=== PATIENT | male | born 1985 | race African-American/Black ===

== ENCOUNTER 2016-06-03 11:12 | Emergency (ER) | payer SELFPAY ==
--- NOTE | 2016-06-03 11:17 | ER Document Report ---
ED Medical Screen (RME) - General Chief Complaint: Penile Discharge Stated Complaint: URINARY PROBLEMS Time seen by provider: 11:15 Mode of Arrival: Ambulatory Information source: Patient Notes: 31-year-old male presents to ED for abnormal discharge and pain with urination started this morning. States he had had unprotected sex. I have greeted and performed a rapid initial assessment of this patient. A comprehensive ED assessment and evaluation of the patient, analysis of test results and completion of medical decision making process will be conducted by an additional ED providers. TRAVEL OUTSIDE OF THE [place] IN LAST 30 DAYS: No - Related Data Allergies/Adverse Reactions: No Known Drug Allergies Allergy (Verified 04/23/15 03:27) Past Medical History Musculoskeltal Medical History: Reports Hx Arthritis, Reports Hx Musculoskeletal Deformity, Reports Hx Musculoskeletal Trauma - Immunizations Immunizations up to date: Yes Hx Diphtheria, Pertussis, Tetanus Vaccination: Yes - 2013
[2016-06-03 11:48] LABS: APPEARANCE,URINE CLEAR; BILIRUBIN,URINE NEGATIVE (NEGATIVE); GLUCOSE, URINE NEGATIVE (NEGATIVE); KETONES,URINE NEGATIVE (NEGATIVE); LEUKOCYTE ESTERASE,URINE NEGATIVE (NEGATIVE); NITRITE,URINE NEGATIVE (NEGATIVE); PROTEIN,URINE 100 mg/dL (NEGATIVE); URINE SPECIFIC GRAVITY 1.023; UROBILINOGEN,URINE NEGATIVE mg/dL (<2.0)
--- NOTE | 2016-06-03 11:59 | ER Document Report ---
ED General - General Chief Complaint: Penile Discharge Stated Complaint: URINARY PROBLEMS Time seen by provider: 11:57 Mode of Arrival: Ambulatory Notes: This is a 31-year-old male that presents today with penile discharge since 0700 this morning. Patient states that the discharge is yellow green colored. He does admit to some discomfort during the stream. Denies trouble starting a stream or pain. Denies any hematuria. Denies nausea vomiting fever or chills. He has been engaging in unprotected sex. Patient has been with this woman for one week.admits to a monogamous relationship. Patient denies that his partner is symptomatic of any STDs. Denies any testicular pain or swelling. TRAVEL OUTSIDE OF THE [place] IN LAST 30 DAYS: No - Related Data Allergies/Adverse Reactions: No Known Drug Allergies Allergy (Verified 06/03/16 11:17) Past Medical History - General Information source: Patient - Social History Smoking Status: Never Smoker Chew tobacco use (# tins/day): No Frequency of alcohol use: None Drug Abuse: Bath salts Family History: CAD, Hyperlipidemia, Hypertension. denies: Arthritis, CVA, DM, Malignancy, Thyroid Disfunction Patient has suicidal ideation: No Patient has homicidal ideation: No Renal/ Medical History: Denies: Hx Peritoneal Dialysis Musculoskeltal Medical History: Reports Hx Arthritis, Reports Hx Musculoskeletal Deformity, Reports Hx Musculoskeletal Trauma - Immunizations Immunizations up to date: Yes Hx Diphtheria, Pertussis, Tetanus Vaccination: Yes - 2013 Review of Systems - Review of Systems Constitutional: denies: Chills, Fever EENT: No symptoms reported Cardiovascular: No symptoms reported Respiratory: No symptoms reported Gastrointestinal: No symptoms reported Genitourinary: See HPI Male Genitourinary: See HPI, Penile discharge. denies: Testicular pain Musculoskeletal: No symptoms reported Skin: No symptoms reported Hematologic/Lymphatic: No symptoms reported Neurological/Psychological: No symptoms reported Physical Exam - Vital signs Vitals: Temp Pulse Resp BP Pulse Ox 98.1 F 61 18 130/75 H 99 06/03/16 11:16 06/03/16 11:16 06/03/16 11:16 06/03/16 11:16 06/03/16 11:16 - General General appearance: Appears well In distress: None - HEENT Head: Normocephalic, Atraumatic Eyes: Normal Conjunctiva: Normal - Respiratory Respiratory status: No respiratory distress Breath sounds: Normal. No: Rales, Rhonchi, Stridor, Wheezing - Cardiovascular Rhythm: Regular Heart sounds: Normal auscultation - Abdominal Inspection: Normal Distension: No distension Tenderness: Nontender - Genitourinary Inspection: Normal - Patient is circumcised. No discharge noted or drainage on examination. No: Blood at meatus Tenderness: Nontender. No: Lesions, Testicle tender, Epididymis tender Cremasteric reflex: Normal Scrotum: Normal - No lesions noted. No: Swelling, Redness, Hot to touch - Back Back: Normal. No: CVA tenderness - Extremities General upper extremity: Normal inspection, Normal ROM General lower extremity: Normal inspection, Nontender, Normal ROM, Normal strength - Neurological Cognition: Normal. No: Confused - Psychological Associated symptoms: Normal affect, Normal mood - Skin Skin Temperature: Warm Skin Moisture: Dry Skin Color: Normal Course - Re-evaluation Re-evalutation: 06/03/16 12:36 Patient was advised to follow-up with primary care physician. Patient was told of laboratory findings. He was given multiple opportunities to ask questions. On genitourinary exam patient did not have any testicular pain no torsion. Patient was advised to practice safer intercourse practices. - Vital Signs Vital signs: Temp Pulse Resp BP Pulse Ox 98.2 F 62 16 127/72 H 99 06/03/16 13:55 06/03/16 13:55 06/03/16 13:55 06/03/16 13:55 06/03/16 13:55 - Laboratory Laboratory results interpreted by me: 06/03/16 11:25 Urine Protein 100 H Discharge - Discharge Clinical Impression: Penile discharge, without blood Condition: Good Disposition: HOME, SELF-CARE Additional Instructions: Return to the emergency department if symptoms worsen such as fever, testicular pain, purulent discharge, et. Follow-up with primary care physician as soon as possible Referrals: [facility] [Provider Group] - Follow up as needed
[2016-06-03 12:04] LABS: URINE BARBITURATES SCREEN NEGATIVE; URINE METHADONE SCREEN NEGATIVE; URINE PHENCYCLIDINE SCREEN NEGATIVE
[2016-06-03 13:15] LABS: CHLAM PCR NOT DETECTED (NOT DETECT)
[2016-06-03 13:56] VITALS: BP 127/72
== END 2016-06-03 13:56 | disposition home or self-care (01) ==
LOC: ER 11:12
DX: R36.9 Urethral discharge, unspecified (principal); R30.0 Dysuria
CPT/HCPCS: 80307; 81001; 87491; 87591; 99283

== ENCOUNTER 2016-11-17 21:38 | Emergency (ER) | payer SELFPAY ==
[2016-11-17 21:48] VITALS: BP 129/69
--- NOTE | 2016-11-17 23:45 | ER Document Report ---
ED GI/ - General Chief Complaint: Urinary Problem Stated Complaint: PAINFUL URINATION/DISCHARGE Time Seen by Provider: 11/17/16 23:12 Mode of Arrival: Ambulatory Information source: Patient Notes: 31-year-old male presents to ED for burning with urination since yesterday and green penile drainage since this morning. He states he has a history of a STD in the past for which she needed antibiotics in the past. TRAVEL OUTSIDE OF THE [place] IN LAST 30 DAYS: No - HPI Patient complains to provider of: Other - Burning with urination and green penile discharge Onset: Other - see HPI Timing/Duration: Gradual Quality of pain: Burning Severity at maximum: Moderate Severity in ED: Moderate Pain Level: 4 Location: Other - Burning with urination and penile discharge Sexual history: Active, Unprotected intercourse Associated symptoms: Penile discharge, Other - Burning with urination Exacerbated by: Other - Urination Relieved by: Denies Similar symptoms previously: Yes Recently seen / treated by doctor: No - Related Data Allergies/Adverse Reactions: No Known Drug Allergies Allergy (Verified 06/03/16 11:17) Past Medical History - General Information source: Patient - Social History Smoking Status: Former Smoker Cigarette use (# per day): No Chew tobacco use (# tins/day): No Smoking Education Provided: No Frequency of alcohol use: Occasional Drug Abuse: Marijuana Occupation: Construction Lives with: Spouse/Significant other Family History: CAD, Hyperlipidemia, Hypertension. denies: Arthritis, COPD, CVA , DM, Malignancy, Thyroid Disfunction Patient has suicidal ideation: No Patient has homicidal ideation: No - Past Medical History Cardiac Medical History: Reports: None Pulmonary Medical History: Reports: None EENT Medical History: Reports: None Neurological Medical History: Reports: None Endocrine Medical History: Reports: None Renal/ Medical History: Reports: None Malignancy Medical History: Reports None GI Medical History: Reports: None Musculoskeltal Medical History: Reports Hx Arthritis, Reports Hx Musculoskeletal Deformity, Reports Hx Musculoskeletal Trauma Skin Medical History: Reports None Psychiatric Medical History: Reports: None Traumatic Medical History: Reports: None Infectious Medical History: Reports: None Surgical Hx: Negative Past Surgical History: Reports: None - Immunizations Immunizations up to date: Yes Hx Diphtheria, Pertussis, Tetanus Vaccination: Yes - 2013 Review of Systems - Review of Systems Constitutional: No symptoms reported EENT: No symptoms reported Cardiovascular: No symptoms reported Respiratory: No symptoms reported Gastrointestinal: No symptoms reported Genitourinary: Burning Male Genitourinary: Penile discharge Musculoskeletal: No symptoms reported Skin: No symptoms reported Hematologic/Lymphatic: No symptoms reported Neurological/Psychological: No symptoms reported -: Yes All other systems reviewed and negative Physical Exam - Vital signs Vitals: Temp Pulse Resp BP Pulse Ox 98 F 54 L 16 129/69 H 97 11/17/16 21:45 11/17/16 21:45 11/17/16 21:45 11/17/16 21:45 11/17/16 21:45 Interpretation: Normal - General General appearance: Appears well, Alert - HEENT Head: Normocephalic, Atraumatic Eyes: Normal Pupils: PERRL - Respiratory Respiratory status: No respiratory distress Chest status: Nontender Breath sounds: Normal Chest palpation: Normal - Cardiovascular Rhythm: Regular Heart sounds: Normal auscultation Murmur: No - Abdominal Inspection: Normal Distension: No distension Bowel sounds: Normal Tenderness: Nontender Organomegaly: No organomegaly - Genitourinary Tenderness: Nontender, Other - Green penile discharge Cremasteric reflex: Normal Scrotum: Normal - Back Back: Normal, Nontender - Extremities General upper extremity: Normal inspection, Nontender, Normal color, Normal ROM , Normal temperature General lower extremity: Normal inspection, Nontender, Normal color, Normal ROM , Normal temperature, Normal weight bearing. No: Kiana's sign - Neurological Neuro grossly intact: Yes Cognition: Normal Orientation: AAOx4 Patria Coma Scale Eye Opening: Spontaneous Pierce Coma Scale Verbal: Oriented Pierce Coma Scale Motor: Obeys Commands Patria Coma Scale Total: 15 Speech: Normal Motor strength normal: LUE, RUE, LLE, RLE Sensory: Normal - Psychological Associated symptoms: Normal affect, Normal mood - Skin Skin Temperature: Warm Skin Moisture: Dry Skin Color: Normal Course - Re-evaluation Re-evalutation: 11/18/16 06:20 Patient did not want to wait for his lab results so he was treated with Rocephin and azithromycin for his penile discharge. 11/18/16 06:21 He was positive for GC and chlamydia. 11/18/16 06:22 Attempted to call patient results but phone number date is in the computer states that the mailbox is full. Here because a number of things in the computer - Vital Signs Vital signs: Temp Pulse Resp BP Pulse Ox 98 F 54 L 16 129/69 H 97 11/17/16 21:45 11/17/16 21:45 11/17/16 21:45 11/17/16 21:45 11/17/16 21:45 - Laboratory Laboratory results interpreted by me: 11/17/16 11/17/16 23:10 23:30 Urine Blood SMALL H Ur Leukocyte Esterase MODERATE H Chlamydia DNA (PCR) DETECTED H N.gonorrhoeae DNA (PCR) DETECTED H Discharge - Discharge Clinical Impression: Urethritis Condition: Stable Disposition: HOME, SELF-CARE Instructions: Family Physicians / Practices Additional Instructions: Urethritis You have urethritis, an infection of the urethra. The usual symptoms are pain on urination and discharge. The infection is often caused by gonorrhea or chlamydia. Treatment is antibiotics. In addition, any sexual contacts should be evaluated by a physician as soon as possible. As this infection can be transmitted sexually, refrain from sexual activity until the infection is confirmed as healed by your physician. If gonorrhea or chlamydia is found on culture, the health department must be notified. Call the doctor at once if you develop difficulty passing your urine, high fever, rash, joint swelling, or other new symptoms. Rocephin You have been given an injection of an antibiotic called Rocephin ( ceftriaxone). Sometimes the injection must be combined with antibiotic pills. For some infections, such as an uncomplicated ear infection, Rocephin provides all the antibiotic that's needed. The antibiotic will be in your body for about two days. For serious infections, we usually repeat doses of Rocephin daily. Side effects are very unusual following a shot. Women may develop vaginal yeast infections, and babies can get yeast (thrush) in the mouth following the use of antibiotics. Contact your physician if you have symptoms with this medication. Allergy to this antibiotic can result in hives, wheezing, faintness, or itching. If symptoms of allergy occur, call the doctor at once. AZITHROMYCIN: Azithromycin (Zithromax) is a broad spectrum antibiotic in the same class as erythromycin. It can treat a variety of bacterial infections, but is most frequently used for respiratory infections. Azithromycin is extremely long-lasting. It accumulates in body tissues and continues to kill bacteria for many days. In order to improve absorption, Azithromycin should be taken at least one hour before or two hours after a meal. It does not have the same strong tendency to upset the stomach as erythromycin and is usually very well tolerated. Patients who have had a rash or other true allergic reactions to erythromycin should not take this medication. Call if you develop gastrointestinal distress, severe diarrhea, rash, hives, itching, or shortness of breath. FOLLOW-UP CARE: If you have been referred to a physician for follow-up care, call the physician s office for an appointment as you were instructed or within the next two days. If you experience worsening or a significant change in your symptoms, notify the physician immediately or return to the Emergency Department at any time for re-evaluation. Forms: Elevated Blood Pressure, Return to Work
[2016-11-18 00:31] LABS: AMORPHOUS SEDIMENT,URINE TRACE /HPF; APPEARANCE,URINE CLEAR; BILIRUBIN,URINE NEGATIVE (NEGATIVE); GLUCOSE, URINE NEGATIVE (NEGATIVE); KETONES,URINE NEGATIVE (NEGATIVE); LEUKOCYTE ESTERASE,URINE MODERATE (NEGATIVE); NITRITE,URINE NEGATIVE (NEGATIVE); PROTEIN,URINE NEGATIVE (NEGATIVE); URINE SPECIFIC GRAVITY 1.012; UROBILINOGEN,URINE NEGATIVE mg/dL (<2.0)
[2016-11-18] MEDS ORDERED: CEFTRIAXONE INJ 250 MG VIAL IM ONE (00:34)
[2016-11-18] MEDS ORDERED: AZITHROMYCIN 250 MG TABLET PO ONE (00:34)
[2016-11-18] MEDS ORDERED: LIDOCAINE 1% INJ-PF (10 MG/ML) 30 ML SDV INJ ONE (00:34)
[2016-11-18 01:57] LABS: CHLAM PCR DETECTED (NOT DETECT)
== END 2016-11-18 01:05 | disposition home or self-care (01) ==
LOC: ER 21:38
DX: N34.2 Other urethritis (principal); R39.198 Other difficulties with micturition; Z87.891 Personal history of nicotine dependence
CPT/HCPCS: 99283; 96372; 81001; 87491; 87591; J3490; J0696

== ENCOUNTER 2017-11-25 11:53 | Emergency (ER) | payer SELFPAY ==
[2017-11-25 11:59] VITALS: BP 112/69
[2017-11-25] MEDS ORDERED: LIDOCAINE 1% INJ-PF (10 MG/ML) 30 ML SDV INFIL ONE (12:17)
[2017-11-25] MEDS ORDERED: CEFTRIAXONE INJ 250 MG VIAL IM ONE (12:17)
[2017-11-25] MEDS ORDERED: AZITHROMYCIN 250 MG TABLET PO ONE (12:18)
--- NOTE | 2017-11-25 12:27 | ER Document Report ---
HPI - HPI Patient complains to provider of: Dysuria Pain Level: 4 Context: Patient is a 32-year-old healthy male complaining of mild dysuria 2 days. Patient does admit to unprotected intercourse in a monogamous relationship. Patient denies any fever, abdominal pain, penile pain, testicular pain. Associated Symptoms: None Exacerbated by: Denies Relieved by: Denies Similar symptoms previously: No Recently seen / treated by doctor: No - ROS Systems Reviewed and Negative: Yes All other systems reviewed and negative - URINARY Urinary: REPORTS: Dysuria Past Medical History - General Information source: Patient - Social History Smoking Status: Never Smoker Frequency of alcohol use: Rare Drug Abuse: None Lives with: Family Family History: CAD, Hyperlipidemia, Hypertension. denies: Arthritis, COPD, CVA , DM, Malignancy, Thyroid Disfunction Patient has suicidal ideation: No Patient has homicidal ideation: No Renal/ Medical History: Denies: Hx Peritoneal Dialysis Musculoskeletal Medical History: Reports Hx Arthritis, Reports Hx Musculoskeletal Deformity, Reports Hx Musculoskeletal Trauma - Immunizations Immunizations up to date: Yes Hx Diphtheria, Pertussis, Tetanus Vaccination: Yes - 2014 [employer] Provider Document - CONSTITUTIONAL Agree With Documented VS: Yes Exam Limitations: No Limitations - INFECTION CONTROL TRAVEL OUTSIDE OF THE [place] IN LAST 30 DAYS: No - HEENT HEENT: Atraumatic, PERRLA - NECK Neck: Normal Inspection, Supple - RESPIRATORY Respiratory: Breath Sounds Normal, No Respiratory Distress - CARDIOVASCULAR Cardiovascular: Regular Rate, Regular Rhythm - GI/ABDOMEN Gastrointestinal: Abdomen Soft - MUSCULOSKELETAL/EXTREMETIES Musculoskeletal/Extremeties: MAEW - NEURO Level of Consciousness: Awake, Alert - DERM Integumentary: Warm, Dry Course - Re-evaluation Re-evalutation: 11/25/17 12:19 Patient treated for gonorrhea and chlamydia while in the ED. The labs are pending. I will call with those results. Patient encouraged not to have unprotected intercourse. Home care, PCM follow-up and ED return precautions discussed with patient. Patient is agreeable with plan is stable for discharge - Vital Signs Vital signs: Temp Pulse Resp BP Pulse Ox 97.8 F 60 16 112/69 98 11/25/17 11:57 11/25/17 11:57 11/25/17 11:57 11/25/17 11:57 11/25/17 11:57 Discharge - Discharge Clinical Impression: Dysuria Condition: Stable Disposition: HOME, SELF-CARE Instructions: Gonorrhea ([facility]), Chlamydia ([facility]), Antibiotic Shot ([facility]), Antibiotic Therapy ([facility]) Additional Instructions: You were treated with a dose of antibiotics to cover for gonorrhea and chlamydia I will call you with those results today If any tests are positive, your partner will need treatment
[2017-11-25 12:43] LABS: APPEARANCE,URINE CLEAR; BILIRUBIN,URINE NEGATIVE (NEGATIVE); COLOR,URINE YELLOW; GLUCOSE, URINE NEGATIVE (NEGATIVE); KETONES,URINE NEGATIVE (NEGATIVE); LEUKOCYTE ESTERASE,URINE NEGATIVE (NEGATIVE); NITRITE,URINE NEGATIVE (NEGATIVE); PROTEIN,URINE NEGATIVE (NEGATIVE); URINE SPECIFIC GRAVITY 1.019
[2017-11-25 15:19] LABS: CHLAM PCR DETECTED (NOT DETECT); GON PCR NOT DETECTED (NOT DETECT)
== END 2017-11-25 12:49 | disposition home or self-care (01) ==
LOC: ER 11:53
DX: R30.0 Dysuria (principal)
CPT/HCPCS: 99283; 96372; 81001; 87491; 87591; J3490; J0696

== ENCOUNTER 2018-11-05 13:42 | Emergency (ER) | payer SELFPAY ==
--- NOTE | 2018-11-05 15:30 | ER Document Report ---
HPI - HPI Time Seen by Provider: 11/05/18 15:27 Pain Level: Denies Notes: Patient is an otherwise healthy 33-year-old male presenting to the emergency department with request for STD check. Patient denies any active symptoms, denies any dysuria or penile drainage. Past Medical History - General Information source: Patient - Social History Smoking Status: Current Every Day Smoker Frequency of alcohol use: None Drug Abuse: None Family History: CAD, Hyperlipidemia, Hypertension. denies: Arthritis, COPD, CVA, DM, Malignancy, Thyroid Disfunction Renal/ Medical History: Denies: Hx Peritoneal Dialysis Musculoskeletal Medical History: Reports Hx Arthritis, Reports Hx Musculoskeletal Deformity, Reports Hx Musculoskeletal Trauma Surgical Hx: Negative - Immunizations Immunizations up to date: Yes Hx Diphtheria, Pertussis, Tetanus Vaccination: Yes - 2014 [employer] Provider Document - CONSTITUTIONAL Notes: PHYSICAL EXAMINATION: GENERAL: Well-appearing, well-nourished and in no acute distress. HEAD: Atraumatic, normocephalic. EYES: Pupils equal round extraocular movements intact, conjunctiva are normal. ENT: Nares patent NECK: Normal range of motion LUNGS: No respiratory distress Musculoskeletal: Normal range of motion NEUROLOGICAL: Normal speech, normal gait. PSYCH: Normal mood, normal affect. SKIN: Warm, Dry, normal turgor, no rashes or lesions noted. - INFECTION CONTROL TRAVEL OUTSIDE OF THE [place] IN LAST 30 DAYS: No Course - Re-evaluation Re-evalutation: Chlamydia and gonorrhea testing are pending. Patient will be treated with Rocephin and azithromycin per her request. Patient will be discharged home in stable condition. - Vital Signs Vital signs: Temp Pulse Resp BP Pulse Ox 98.2 F 50 L 16 110/51 L 98 11/05/18 13:47 11/05/18 13:47 11/05/18 13:47 11/05/18 13:47 11/05/18 13:47 Discharge - Discharge Clinical Impression: Screen for STD (sexually transmitted disease) Condition: Stable Disposition: HOME, SELF-CARE Additional Instructions: You were seen and treated today for possible STD exposure. We will call you if the results are positive. You were to given the medications to treat both gonorrhea and chlamydia. If either of these tests are positive please refrain from unprotected sexual intercourse for 7 to 10 days.
[2018-11-05] MEDS ORDERED: AZITHROMYCIN 250 MG TABLET PO ONE (15:44)
[2018-11-05] MEDS ORDERED: LIDOCAINE 1% INJ-PF (10 MG/ML) 30 ML SDV IM ONE (15:44)
[2018-11-05] MEDS ORDERED: CEFTRIAXONE INJ 250 MG VIAL IM ONE (15:44)
[2018-11-05 16:05] VITALS: BP 128/78
[2018-11-05 17:22] LABS: CHLAM PCR NOT DETECTED (NOT DETECT)
== END 2018-11-05 16:12 | disposition home or self-care (01) ==
LOC: ER 13:42
DX: Z20.2 Contact with and (suspected) exposure to infections with a predominantly sexual mode of transmission (principal); F17.200 Nicotine dependence, unspecified, uncomplicated
CPT/HCPCS: 99283; 96372; 87491; 87591; J3490; J0696